=== PATIENT | male | born 1950 | race Caucasian/White ===

== ENCOUNTER 2024-02-11 17:22 | Inpatient (IN) | payer OTHER ==
[2024-02-11 19:13] LABS: BASO % 0.5 % (0-2.0); EOS % 1.3 % (0-4.5); HEMATOCRIT 41.3 % (35.4-49); HEMOGLOBIN 13.8 GM/dL (11.7-16.9); LYMPH % 12.7 % (8-40); MCH 31.1 pg (25.7-33.7); MCHC 33.4 g/dl (32.0-35.9); MONO % 7.9 % (3.8-10.2); NEUT % 77.6 % (42.8-82.8); PLATELET COUNT 282 10^3/uL (134-434); RBC 4.44 M/mm3 (4.00-5.60); RDW 14.4 % (11.9-15.9); WHITE BLOOD COUNT 8.5 K/mm3 (4.0-10.0)
[2024-02-11 19:22] LABS: CALCIUM 8.7 mg/dL (8.5-10.1); POTASSIUM 4.2 mmol/L (3.5-5.1)
[2024-02-11 19:23] LABS: ALBUMIN 3.5 g/dl (3.4-5.0)
[2024-02-11 19:25] LABS: BLOOD UREA NITROGEN 16.3 mg/dL (7-18)
[2024-02-11 19:27] LABS: CREATININE 1.1 mg/dL (0.55-1.3)
[2024-02-11 19:28] LABS: TOT PROT 6.6 g/dl (6.4-8.2)
[2024-02-11 19:29] LABS: BILIRUBIN,TOTAL 0.8 mg/dL (0.2-1)
[2024-02-11 19:33] LABS: INR 0.95 (0.83-1.09); PROTHROMBIN TIME (PATIENT) 10.9 SEC (9.7-13.0)
[2024-02-11 19:35] LABS: ACTIVATED PTT 29.6 SECONDS (25.2-36.5)
[2024-02-11] MEDS: ASPIRIN 81 MG CHEWABLE TABLETS PO SCH (22:16)
[2024-02-11] MEDS ORDERED: ATORVASTATIN CA 40 MG TABLET (FP) ONE (22:24)
[2024-02-11] MEDS ORDERED: ASPIRIN 81 MG CHEWABLE TABLETS ONE (22:24)
[2024-02-11 22:27] LABS: EPI CELLS 1 /uL (0-25.1); HYALINE CASTS 0 /uL (0-3.1); URINE APPEARANCE CLEAR; URINE BACTERIA 6 /uL (0-1359); URINE BILIRUBIN NEGATIVE (NEGATIVE); URINE COLOR YELLOW; URINE GLUCOSE (UA) NEGATIVE (NEGATIVE); URINE KETONE NEGATIVE (NEGATIVE); URINE LEUK ESTERASE TRACE (NEGATIVE); URINE NITRITE NEGATIVE (NEGATIVE); URINE PROTEIN NEGATIVE (NEGATIVE); URINE RBC 6 /uL (0-23.9); URINE UROBILINOGEN 0.2 mg/dL (0.2-1.0); URINE WBC 18 /uL (0-25.8)
[2024-02-11] MEDS: ASPIRIN 81 MG CHEWABLE TABLETS PO ONE (22:31)
[2024-02-11] MEDS: ATORVASTATIN CA 40 MG TABLET (FP) PO SCH (22:31)
[2024-02-12 01:07] VITALS: BMI 20.3
[2024-02-12 07:52] LABS: BASO % 0.8 % (0-2.0); EOS % 3.6 % (0-4.5); HEMOGLOBIN 14.7 GM/dL (11.7-16.9); LYMPH % 15.6 % (8-40); MCH 31.5 pg (25.7-33.7); MCHC 33.5 g/dl (32.0-35.9); MEAN PLT VOLUME 8.1 fl (7.5-11.1); MONO % 8.3 % (3.8-10.2); NEUT % 71.7 % (42.8-82.8); PLATELET COUNT 279 10^3/uL (134-434); RBC 4.68 M/mm3 (4.00-5.60); RDW 14.4 % (11.9-15.9); WHITE BLOOD COUNT 7.5 K/mm3 (4.0-10.0)
[2024-02-12 07:55] LABS: POTASSIUM 4.2 mmol/L (3.5-5.1)
[2024-02-12 07:59] LABS: CALCIUM 8.9 mg/dL (8.5-10.1)
[2024-02-12 08:00] LABS: ALBUMIN 3.7 g/dl (3.4-5.0); BLOOD UREA NITROGEN 15.2 mg/dL (7-18); MAGNESIUM 2.2 mg/dL (1.8-2.4)
[2024-02-12 08:04] LABS: BILIRUBIN,TOTAL 1.5 mg/dL (0.2-1); PHOSPHOROUS 2.3 mg/dL (2.5-4.9); TOT PROT 6.9 g/dl (6.4-8.2)
[2024-02-12] MEDS: TAMSULOSIN HCL 0.4 MG CAP PO SCH (08:44)
[2024-02-12] MEDS: ASPIRIN 81 MG CHEWABLE TABLETS PO SCH (08:45)
[2024-02-12] MEDS: NAPH,MB-DB/K PH,MBDB POWDER PACKET PO ONE (08:46)
[2024-02-12] MEDS: ENOXAPARIN NA (PORCINE) 40 MG/0.4 ML DISP.SYRIN SQ SCH (09:27)
[2024-02-12] MEDS: metoPROLOL SUCCINATE 25 MG TAB.SR.24H (FP) PO SCH (09:28)
[2024-02-12] MEDS: LISINOPRIL 10 MG TABLET PO SCH (15:23)
[2024-02-13] MEDS: ACETAMINOPHEN 1000 MG/100 ML BAG IVPB ONE (02:18)
[2024-02-13] MEDS: MELATONIN 5 MG TABLETS PO ONE (09:12)
[2024-02-13 11:48] LABS: HEMATOCRIT 44.7 % (35.4-49); MCH 31.2 pg (25.7-33.7); MCHC 33.6 g/dl (32.0-35.9); MEAN CELL VOLUME 92.8 fl (80-96); MEAN PLT VOLUME 7.5 fl (7.5-11.1); PLATELET COUNT 288 10^3/uL (134-434); RBC 4.81 M/mm3 (4.00-5.60); RDW 14.5 % (11.9-15.9); WHITE BLOOD COUNT 7.3 K/mm3 (4.0-10.0)
[2024-02-13 12:07] LABS: POTASSIUM 4.4 mmol/L (3.5-5.1)
[2024-02-13 12:08] LABS: CALCIUM 9.3 mg/dL (8.5-10.1)
[2024-02-13 12:09] LABS: BLOOD UREA NITROGEN 18.7 mg/dL (7-18); MAGNESIUM 2.3 mg/dL (1.8-2.4)
[2024-02-13 12:12] LABS: CREATININE 0.9 mg/dL (0.55-1.3); PHOSPHOROUS 2.7 mg/dL (2.5-4.9)
[2024-02-13] MEDS: SODIUM CHLORIDE 1,000 ML IV STA (15:38)
[2024-02-13] MEDS: ACETAMINOPHEN 325 MG TABLET (FP) PO PRN (17:18)
[2024-02-14 07:48] LABS: POTASSIUM 4.5 mmol/L (3.5-5.1)
[2024-02-14 07:56] LABS: BLOOD UREA NITROGEN 20.5 mg/dL (7-18); CALCIUM 8.8 mg/dL (8.5-10.1)
[2024-02-14 07:59] LABS: CREATININE 0.9 mg/dL (0.55-1.3)
[2024-02-14 08:10] LABS: HEMATOCRIT 43.1 % (35.4-49); HEMOGLOBIN 14.4 GM/dL (11.7-16.9); MCH 31.7 pg (25.7-33.7); MCHC 33.4 g/dl (32.0-35.9); MEAN CELL VOLUME 94.9 fl (80-96); PLATELET COUNT 259 10^3/uL (134-434); RBC 4.54 M/mm3 (4.00-5.60); RDW 14.1 % (11.9-15.9)
[2024-02-14] MEDS: CLOPIDOGREL BISULFATE 75 MG TABLET (FP) PO SCH (18:06)
[2024-02-14] MEDS: ROSUVASTATIN CA 20 MG TABLET PO SCH (21:39)
[2024-02-14] MEDS ORDERED: metoPROLOL SUCCINATE 25 MG TAB.SR.24H (FP) PO SCH (22:00)
[2024-02-15] MEDS ORDERED: metoPROLOL SUCCINATE 25 MG TAB.SR.24H (FP) PO SCH ×2 (10:00)
[2024-02-15] MEDS: metoPROLOL SUCCINATE 25 MG TAB.SR.24H (FP) PO SCH (10:04)
[2024-02-15] MEDS: ASPIRIN COATED 81 MG TABLET.EC PO SCH (10:04)
[2024-02-15 11:47] VITALS: TEMP 98.2
[2024-02-15 13:29] VITALS: BP 141/100; PULSE 82; RESP 24
== END 2024-02-15 16:55 | disposition home or self-care (01) | DRG 123 ==
LOC: JER 17:22 → JERBED 20:50 → INTOOBSV 20:50 → J4W 02-12 00:11 → OBSVTOIN 02-14 17:48
PROVIDERS: ADMIT Internal Medicine; ATTEND Internal Medicine
DX: H34.9 Unspecified retinal vascular occlusion (principal); I10 Essential (primary) hypertension; N40.0 Benign prostatic hyperplasia without lower urinary tract symptoms; I65.21 Occlusion and stenosis of right carotid artery; I65.01 Occlusion and stenosis of right vertebral artery
CPT/HCPCS: 36415; 70450-TC; 70496-TC; 70498-TC; 70544-TC; 70547-TC; 80048; 80053; 80061; 81003; 81240; 81241; 82550; 82962; 83036; 83735; 84100; 84439; 84443; 84484; 85025; 85027; 85300; 85610; 85651; 85730; 86140; 86850; 86900; 86901; 93005; 93010; 93306-TC; 93880-TC; 97116-GP; 97161-GP; 99285-25; G0378; J0131

== ENCOUNTER 2024-04-20 04:32 | Inpatient (IN) | payer OTHER ==
[2024-04-20] MEDS ORDERED: HEPARIN NA (PORCINE) 5,000 UNITS/ML 1ML VIAL ONE ×2 (07:16→07:21)
[2024-04-20] MEDS ORDERED: POVIDONE-IODINE OINTMENT 10% - 28.4 GM TUBE ONE ×2 (07:16→07:21)
[2024-04-20] MEDS ORDERED: LIDOCAINE HCL 0.5%, 5 MG/ML (50mL SDVIAL) ONE (07:22)
[2024-04-20] MEDS ORDERED: MIDAZOLAM HCL 2 MG/2 ML SINGLE DOSE VIAL ONE (07:40)
[2024-04-20] MEDS ORDERED: PROPOFOL 20 ML ONE ×2 (07:40→10:21)
[2024-04-20] MEDS ORDERED: ROCURONIUM BROMIDE 50 MG/5 ML SYRINGE ONE ×2 (07:40→09:23)
[2024-04-20] MEDS: ceFAZolin SODIUM 1 GM VIAL IVPB ONE ×2 (08:12)
[2024-04-20] MEDS ORDERED: NEOSTIGMINE METHYLSULFATE 0.5 MG/1 ML - 10 ML MDV ONE (10:18)
[2024-04-20] MEDS: POVIDONE-IODINE OINTMENT 10% - 28.4 GM TUBE TP ONE (10:20)
[2024-04-20] MEDS ORDERED: oxyCODONE HCL 5 MG TABLET PO PRN (11:03)
[2024-04-20] MEDS ORDERED: ONDANSETRON 4 MG/2 ML VIAL IVPUSH PRN (11:08)
[2024-04-20] MEDS ORDERED: ACETAMINOPHEN INJECTION 100 ML ONE (11:16)
[2024-04-20] MEDS: ACETAMINOPHEN 1000 MG/100 ML BAG IVPB ONE (11:50)
[2024-04-20] MEDS: LACTATED RINGERS SOLUTION 1,000 ML IV SCH (12:14)
[2024-04-20] MEDS: oxyCODONE HCL 5 MG TABLET PO PRN (13:12)
[2024-04-20] MEDS: CEFAZOLIN 2 GM in DEXTROSE 5%-WATER - 100 ML IVPB ONE (13:21)
[2024-04-20] MEDS: ACETAMINOPHEN 325 MG TABLET (FP) PO SCH (13:22)
[2024-04-20] MEDS: ASPIRIN 81 MG CHEWABLE TABLETS PO SCH (17:18)
[2024-04-20] MEDS: CLOPIDOGREL BISULFATE 75 MG TABLET (FP) PO SCH (17:18)
[2024-04-20] MEDS: ONDANSETRON 4 MG/2 ML VIAL IVPUSH ONE (19:15)
[2024-04-20] MEDS: NICARDIPINE 25 MG in DEXTROSE 5%-WATER - 240 ML IVPB SCH (20:57)
[2024-04-20] MEDS: ROSUVASTATIN CA 20 MG TABLET PO SCH (22:14)
[2024-04-20] MEDS: TAMSULOSIN HCL 0.4 MG CAP PO SCH (22:15)
[2024-04-21] MEDS: metoPROLOL SUCCINATE 25 MG TAB.SR.24H (FP) PO SCH ×3 (03:08→11:50)
[2024-04-21] MEDS: ACETAMINOPHEN 1000 MG/100 ML BAG IVPB ONE (05:09)
[2024-04-21] MEDS: ONDANSETRON 4 MG/2 ML VIAL IVPUSH ONE ×2 (05:54→08:46)
[2024-04-21 06:50] LABS: HEMATOCRIT 37.5 % (35.4-49); HEMOGLOBIN 12.7 GM/dL (11.7-16.9); MCH 31.1 pg (25.7-33.7); MCHC 33.9 g/dl (32.0-35.9); MEAN CELL VOLUME 91.7 fl (80-96); MEAN PLT VOLUME 7.9 fl (7.5-11.1); PLATELET COUNT 261 10^3/uL (134-434); RBC 4.08 M/mm3 (4.00-5.60); RDW 13.3 % (11.9-15.9); WHITE BLOOD COUNT 14.4 K/mm3 (4.0-10.0)
[2024-04-21 06:55] LABS: POTASSIUM 3.8 mmol/L (3.5-5.1)
[2024-04-21 06:59] LABS: BLOOD UREA NITROGEN 12.6 mg/dL (7-18); CALCIUM 8.8 mg/dL (8.5-10.1)
[2024-04-21 07:01] LABS: CREATININE 0.7 mg/dL (0.55-1.3)
[2024-04-21] MEDS ORDERED: ONDANSETRON 4 MG/2 ML VIAL ONE ×2 (07:59→10:46)
[2024-04-21] MEDS: ONDANSETRON 4 MG/2 ML VIAL IVPB ONE (08:48)
[2024-04-21] MEDS: FAMOTIDINE 20 MG/50 ML IVPB 20 MG/50 ML MG IVPB ONE (09:10)
[2024-04-21] MEDS: NICARDIPINE 25 MG in DEXTROSE 5%-WATER - 240 ML IVPB SCH (09:11)
[2024-04-21 09:18] LABS: HEMATOCRIT 36.4 % (35.4-49); HEMOGLOBIN 12.2 GM/dL (11.7-16.9); MCHC 33.6 g/dl (32.0-35.9); MEAN CELL VOLUME 92.1 fl (80-96); PLATELET COUNT 237 10^3/uL (134-434); RBC 3.95 M/mm3 (4.00-5.60); RDW 13.3 % (11.9-15.9); WHITE BLOOD COUNT 12.9 K/mm3 (4.0-10.0)
[2024-04-21 09:32] LABS: PROTHROMBIN TIME (PATIENT) 11.3 SEC (9.7-13.0)
[2024-04-21 10:30] LABS: POTASSIUM 3.5 mmol/L (3.5-5.1)
[2024-04-21 10:33] LABS: ALBUMIN 3.2 g/dl (3.4-5.0); BLOOD UREA NITROGEN 12.1 mg/dL (7-18); CALCIUM 8.1 mg/dL (8.5-10.1)
[2024-04-21 10:36] LABS: CREATININE 0.7 mg/dL (0.55-1.3)
[2024-04-21] MEDS: ONDANSETRON 4 MG/2 ML VIAL IVPUSH PRN (11:26)
[2024-04-21] MEDS: HEPARIN NA (PORCINE) 5,000 UNITS/ML 1ML VIAL SQ SCH (15:12)
[2024-04-21] MEDS: METOCLOPRAMIDE HCL INJECTION 10 MG/2 ML VIAL IVPUSH ONE (16:53)
[2024-04-22 07:22] LABS: HEMOGLOBIN 13.4 GM/dL (11.7-16.9); MCH 31.7 pg (25.7-33.7); MCHC 35.2 g/dl (32.0-35.9); MEAN CELL VOLUME 90.1 fl (80-96); PLATELET COUNT 273 10^3/uL (134-434); RBC 4.22 M/mm3 (4.00-5.60); WHITE BLOOD COUNT 15.5 K/mm3 (4.0-10.0)
[2024-04-22 07:37] LABS: POTASSIUM 3.6 mmol/L (3.5-5.1)
[2024-04-22 07:39] LABS: CALCIUM 8.5 mg/dL (8.5-10.1)
[2024-04-22 07:40] LABS: BLOOD UREA NITROGEN 11.5 mg/dL (7-18)
[2024-04-22 07:43] LABS: CREATININE 0.7 mg/dL (0.55-1.3)
[2024-04-22 15:19] LABS: POTASSIUM 3.6 mmol/L (3.5-5.1)
[2024-04-22 15:20] LABS: CALCIUM 8.5 mg/dL (8.5-10.1)
[2024-04-22 15:22] LABS: ALBUMIN 3.3 g/dl (3.4-5.0); BLOOD UREA NITROGEN 13.2 mg/dL (7-18)
[2024-04-22 15:24] LABS: CREATININE 0.7 mg/dL (0.55-1.3)
[2024-04-22 15:26] LABS: BILIRUBIN,TOTAL 1.2 mg/dL (0.2-1); TOT PROT 6.4 g/dl (6.4-8.2)
[2024-04-22 22:08] LABS: POTASSIUM 3.5 mmol/L (3.5-5.1)
[2024-04-22 22:11] LABS: ALBUMIN 3.3 g/dl (3.4-5.0); BLOOD UREA NITROGEN 17.9 mg/dL (7-18)
[2024-04-22 22:13] LABS: CREATININE 0.9 mg/dL (0.55-1.3)
[2024-04-22 22:15] LABS: BILIRUBIN,TOTAL 1.4 mg/dL (0.2-1); TOT PROT 6.5 g/dl (6.4-8.2)
[2024-04-23] MEDS ORDERED: DEXMEDETOMIDINE IN 0.9 % NACL 400 MCG/100 ML BAG IVPB SCH (06:15)
[2024-04-23 07:01] LABS: POTASSIUM 3.3 mmol/L (3.5-5.1)
[2024-04-23 07:04] LABS: ALBUMIN 3.4 g/dl (3.4-5.0)
[2024-04-23 07:06] LABS: ALBUMIN 3.4 g/dl (3.4-5.0); BLOOD UREA NITROGEN 22.9 mg/dL (7-18); CREATININE 0.9 mg/dL (0.55-1.3); PHOSPHOROUS 2.2 mg/dL (2.5-4.9)
[2024-04-23 07:09] LABS: BILIRUBIN,TOTAL 1.5 mg/dL (0.2-1); CREATININE 0.9 mg/dL (0.55-1.3); TOT PROT 6.6 g/dl (6.4-8.2)
[2024-04-23 07:11] LABS: BILIRUBIN,TOTAL 1.5 mg/dL (0.2-1); TOT PROT 6.5 g/dl (6.4-8.2)
[2024-04-23 07:16] LABS: BASO % 0.2 % (0-2.0); EOS % 0.3 % (0-4.5); HEMOGLOBIN 13.1 GM/dL (11.7-16.9); LYMPH % 7.4 % (8-40); MCH 30.7 pg (25.7-33.7); MCHC 33.4 g/dl (32.0-35.9); MEAN CELL VOLUME 91.8 fl (80-96); MEAN PLT VOLUME 7.9 fl (7.5-11.1); MONO % 8.5 % (3.8-10.2); NEUT % 83.6 % (42.8-82.8); PLATELET COUNT 268 10^3/uL (134-434); RBC 4.25 M/mm3 (4.00-5.60); RDW 13.1 % (11.9-15.9); WHITE BLOOD COUNT 11.1 K/mm3 (4.0-10.0)
[2024-04-23] MEDS: POTASSIUM PHOSPHATE 15 MM in DEXTROSE 5%-WATER - 100 ML IVPB ONE (14:00)
[2024-04-23] MEDS: ACETAMINOPHEN 1000 MG/100 ML BAG IVPB PRN (16:41)
[2024-04-23] MEDS ORDERED: PNEUMOC 20-VAL CONJ-DIP CRM/PF 0.5 ML SYRINGE IM ONE (21:20)
[2024-04-24 06:31] LABS: HEMATOCRIT 37.5 % (35.4-49); HEMOGLOBIN 12.8 GM/dL (11.7-16.9); MCH 31.5 pg (25.7-33.7); MCHC 34.2 g/dl (32.0-35.9); MEAN CELL VOLUME 92.1 fl (80-96); MEAN PLT VOLUME 7.6 fl (7.5-11.1); PLATELET COUNT 254 10^3/uL (134-434); RBC 4.07 M/mm3 (4.00-5.60); RDW 12.9 % (11.9-15.9); WHITE BLOOD COUNT 8.7 K/mm3 (4.0-10.0)
[2024-04-24 06:48] LABS: POTASSIUM 3.6 mmol/L (3.5-5.1)
[2024-04-24 06:50] LABS: CALCIUM 9.1 mg/dL (8.5-10.1); MAGNESIUM 2.2 mg/dL (1.8-2.4)
[2024-04-24 06:53] LABS: PHOSPHOROUS 2.9 mg/dL (2.5-4.9)
[2024-04-24 06:54] LABS: CREATININE 1.2 mg/dL (0.55-1.3)
[2024-04-24 06:55] LABS: BILIRUBIN,TOTAL 1.1 mg/dL (0.2-1); TOT PROT 6.1 g/dl (6.4-8.2)
[2024-04-24] MEDS: NADOLOL 40 MG TABLET (FP) PO SCH (13:18)
[2024-04-24 14:38] VITALS: BMI 19.1
[2024-04-24] MEDS: TAMSULOSIN HCL 0.4 MG CAP PO SCH (15:13)
[2024-04-24] MEDS: ONDANSETRON 4 MG/2 ML VIAL IVPUSH ONE (20:55)
[2024-04-24] MEDS: PANTOPRAZOLE 40 MG TABLET PO SCH (21:08)
[2024-04-24] MEDS: DOCUSATE SODIUM 100 MG CAPSULE (FP) PO SCH (21:08)
[2024-04-25 08:07] LABS: POTASSIUM 3.7 mmol/L (3.5-5.1)
[2024-04-25 08:09] LABS: ALBUMIN 3.3 g/dl (3.4-5.0); CALCIUM 8.6 mg/dL (8.5-10.1)
[2024-04-25 08:10] LABS: BASO % 0.5 % (0-2.0); BLOOD UREA NITROGEN 18.4 mg/dL (7-18); EOS % 3.4 % (0-4.5); HEMATOCRIT 41.9 % (35.4-49); HEMOGLOBIN 14.2 GM/dL (11.7-16.9); LYMPH % 11.9 % (8-40); MCHC 33.8 g/dl (32.0-35.9); MEAN CELL VOLUME 91.7 fl (80-96); MONO % 9.1 % (3.8-10.2); NEUT % 75.1 % (42.8-82.8); PLATELET COUNT 323 10^3/uL (134-434); RBC 4.57 M/mm3 (4.00-5.60); RDW 13.1 % (11.9-15.9); WHITE BLOOD COUNT 9.7 K/mm3 (4.0-10.0)
[2024-04-25 08:13] LABS: PHOSPHOROUS 2.8 mg/dL (2.5-4.9)
[2024-04-25 08:14] LABS: TOT PROT 6.6 g/dl (6.4-8.2)
[2024-04-25] MEDS: NADOLOL 40 MG TABLET (FP) PO ONE (19:35)
[2024-04-26 07:12] LABS: HEMATOCRIT 39.6 % (35.4-49); HEMOGLOBIN 13.1 GM/dL (11.7-16.9); MCH 30.7 pg (25.7-33.7); MCHC 33.1 g/dl (32.0-35.9); MEAN CELL VOLUME 92.7 fl (80-96); PLATELET COUNT 286 10^3/uL (134-434); RBC 4.28 M/mm3 (4.00-5.60); RDW 13.3 % (11.9-15.9); WHITE BLOOD COUNT 11.1 K/mm3 (4.0-10.0)
[2024-04-26 07:28] LABS: CALCIUM 8.8 mg/dL (8.5-10.1)
[2024-04-26 07:29] LABS: BLOOD UREA NITROGEN 22.1 mg/dL (7-18)
[2024-04-26 07:33] LABS: BILIRUBIN,TOTAL 0.9 mg/dL (0.2-1)
[2024-04-26 09:26] VITALS: BP 126/70; PULSE 57; RESP 20; TEMP 97.7
[2024-04-26] MEDS: NADOLOL 40 MG TABLET (FP) PO SCH (09:58)
== END 2024-04-26 12:20 | disposition home or self-care (01) | DRG 38 ==
LOC: J2C 04:32 → JICU 13:03
PROVIDERS: ADMIT Surgery; ATTEND Internal Medicine
PROC: 3E05017 Introduction of Other Thrombolytic into Peripheral Artery, Open Approach (ICD-10-PCS; 2024-04-20)
PROC: 03CK0ZZ Extirpation of Matter from Right Internal Carotid Artery, Open Approach (ICD-10-PCS; principal; 2024-04-20 08:00)
DX: I63.231 Cerebral infarction due to unspecified occlusion or stenosis of right carotid arteries (principal); E87.1 Hypo-osmolality and hyponatremia; G81.94 Hemiplegia, unspecified affecting left nondominant side; I25.10 Atherosclerotic heart disease of native coronary artery without angina pectoris; I10 Essential (primary) hypertension; E78.5 Hyperlipidemia, unspecified; E87.6 Hypokalemia; R33.9 Retention of urine, unspecified; N40.1 Benign prostatic hyperplasia with lower urinary tract symptoms; E83.39 Other disorders of phosphorus metabolism; G43.909 Migraine, unspecified, not intractable, without status migrainosus
CPT/HCPCS: 36415; 70496-TC; 70498-TC; 70544-TC; 70551-TC; 80048; 80053; 82436; 82550; 82570; 82962; 83605; 83735; 83935; 84100; 84133; 84300; 84484; 85025; 85027; 85610; 85730; 86850; 86900; 86901; 87481; 87635; 88304-TC; 88311-TC; 94760; 97116-GP; 97162-GP; J0131; J1644; Q9967